=== PATIENT | male | born 1975 | race Caucasian/White ===

== ENCOUNTER 2019-04-07 15:47 | Emergency (ER) | payer OTHER ==
[2019-04-07 16:07] VITALS: BP 119/70
[2019-04-07] MEDS ORDERED: PRED20TA PO (16:31)
--- NOTE | 2019-04-07 16:31 | PHYS DOC ---
Past History Past Medical History: No Pertinent History Past Surgical History: No Surgical History Smoking: Non-smoker Alcohol Use: None Drug Use: None Adult General Chief Complaint Chief Complaint: SKIN PROBLEM HPI HPI 43-year-old male presents with report of cystic lesion to back of right wrist which patient noted today. Patient denies any pain or limitation in range of motion. Denies fever or chills. Denies redness. Patient reports he is right-hand dominant. Reports spouse persuaded him to present to the ER for evaluation. Review of Systems Review of Systems Constitutional: Denies fever or chills Musculoskeletal: Denies back pain; reports cystic lesion to right wrist Integument: Denies rash Neurologic: Denies focal weakness or sensory changes Complete systems were reviewed and found to be within normal limits, except as documented in this note. Allergies Allergies Allergies Coded Allergies Type Severity Reaction Last Updated Verified No Known Drug Allergies 04/07/19 No Physical Exam Physical Exam Constitutional: Well developed, well nourished, no acute distress, non-toxic appearance HENT: Normocephalic, atraumatic Eyes: Conjunctiva normal, no discharge Neck: Normal range of motion, no tenderness, supple Cardiovascular: Right radial pulse +2, CR < 2 sec Lungs & Thorax: No respiratory distress Skin: Warm, dry, no erythema, no rash Extremities: small 1cm cystic structures noted to dorsum of right wrist, ROM intact, no edema Neurologic: Alert and oriented X 3, no focal deficits noted Psychologic: Affect normal, judgement normal Current Patient Data Vital Signs Vital Signs Date Time Temp Pulse Resp B/P (MAP) Pulse Ox O2 Delivery O2 Flow Rate FiO2 04/07/19 16:07 71 12 119/70 (86) 96 Room Air EKG EKG [] Radiology/Procedures Radiology/Procedures [] Course & Med Decision Making Course & Med Decision Making Patient presents with history of present illness and physical exam consistent for ganglion cyst. Symptomatic treatment provided with steroid for anti- inflammatory effect. Patient advised he would likely need to follow with orthopedics for for definitive care. James wrap provided. Patient stable for discharge with outpatient follow-up with PCP/orthopedic surgery. Orthopedic surgery referral provided. Discussed findings and plan with patient, who acknowledges understanding and agreement. Dragon Disclaimer Dragon Disclaimer This electronic medical record was generated, in whole or in part, using a voice recognition dictation system. Splinting Splinting : Location: right wrist Pre-Made Type: JAMES bandage Pre-Proc Neuro Vasc Exam: normal Post-Proc Neuro Vasc Exam: normal, unchanged from pre-exam Departure Departure: Impression: Primary Impression: Ganglion cyst of dorsum of right wrist Disposition: 01 HOME, SELF-CARE Condition: STABLE Referrals: NELLY MEYER PA-C (PCP) MICHAEL BENNETT MD Patient Instructions: Ganglion Cyst Scripts Prednisone (PREDNISONE) 20 Mg Tablet 2 TAB PO DAILY for cyst, #10 TAB Prov: NGA SHAH DO 04/07/19 NGA SHAH DO Apr 07, 2019 16:31
== END 2019-04-07 16:34 | disposition home or self-care (01) ==
LOC: ER 15:47
DX: M67.431 Ganglion, right wrist (principal)
CPT/HCPCS: 99283

== ENCOUNTER 2020-04-07 09:25 | Emergency (ER) | payer OTHER ==
[~2020-04-07] VITALS: Ht 175.3 cm; Wt 84.5 kg
[~2020-04-07 09:25] MED LIST: PRED20TA PO
--- NOTE | 2020-04-07 10:05 | PHYS DOC ---
Past History Past Medical History: No Pertinent History Past Surgical History: No Surgical History Smoking: Non-smoker Alcohol Use: None Drug Use: None General Adult EDM: Chief Complaint: TESTICULAR PAIN OR INJURY HPI: HPI: 44-year-old male presents with right testicle pain. He has had discomfort for the last 3 to 4 days. The right side is mildly swollen compared to the left. He describes the pain as a dull aching of mild to moderate intensity. It is very tender to touch when he bumps it with his leg or sits down on a chair. He denies any urethral discharge. He is in a monogamous relationship. No new or unusual behaviors. He denies trauma. He denies fever or chills. Review of Systems: Review of Systems: Constitutional: Denies fever or chills Eyes: Denies change in visual acuity HENT: Denies nasal congestion or sore throat Respiratory: Denies cough or shortness of breath Cardiovascular: Denies chest pain or edema GI: Denies abdominal pain, nausea, vomiting, bloody stools or diarrhea : Testicle pain Musculoskeletal: Denies back pain or joint pain Integument: Denies rash Neurologic: Denies headache, focal weakness or sensory changes Endocrine: Denies polyuria or polydipsia Lymphatic: Denies swollen glands Psychiatric: Denies depression or anxiety Heart Score: Risk Factors: Risk Factors: DM, Current or recent (<one month) smoker, HTN, HLP, family history of CAD, obesity. Risk Scores: Score 0 - 3: 2.5% MACE over next 6 weeks - Discharge Home Score 4 - 6: 20.3% MACE over next 6 weeks - Admit for Clinical Observation Score 7 - 10: 72.7% MACE over next 6 weeks - Early Invasive Strategies Allergies: Allergies: Allergies Coded Allergies Type Severity Reaction Last Updated Verified No Known Drug Allergies 04/07/19 No Physical Exam: PE: Constitutional: Well developed, well nourished, no acute distress, non-toxic appearance. [] HENT: Normocephalic, atraumatic, bilateral external ears normal, oropharynx mois t, no oral exudates, nose normal. [] Eyes: PERRLA, EOMI, conjunctiva normal, no discharge. [] Neck: Normal range of motion, no tenderness, supple, no stridor. [] Cardiovascular: Heart rate regular rhythm, no murmur [] Lungs & Thorax: Bilateral breath sounds clear to auscultation [] Abdomen: Bowel sounds normal, soft, no tenderness, no masses, no pulsatile masses. [] Skin: Warm, dry, no erythema, no rash. [] Back: No tenderness, no CVA tenderness. [] Extremities: No tenderness, no cyanosis, no clubbing, ROM intact, no edema. [] Neurologic: Alert and oriented X 3, normal motor function, normal sensory function, no focal deficits noted. [] Psychologic: Affect normal, judgement normal, mood normal. : Normally descended testicles bilaterally, right more prominent than left; tenderness to palpation of the right. No urethral discharge. No obvious lesions [] EKG: EKG: [] Radiology/Procedures: Radiology/Procedures: [] Impressions: TESTICULAR/SCROTUM HISTORY: Right testicular pain and swelling Comparison: None. Findings: Multiple grayscale, color, and duplex spectral analysis waveform images of the testicles and scrotum are submitted. Right testicle measured 4.1 x 2.6 x 2.2 cm. Left testicle measured 4.1 x 2.9 x 2.1 cm. There is a small left epididymal head cyst up to 0.4 cm. No intratesticular mass is demonstrated on either side. There is normal low resistance vascularity of interrogated intratesticular vessels bilaterally. No asymmetric hyperemia is demonstrated. Impression: 1. Other than a small left epididymal head cyst, no abnormality is demonstrated. Electronically signed by: René Chew MD (04/07/2020 10:25 AM) [facility] DICTATED AND SIGNED BY: RENÉ CHEW MD DATE: 04/07/20 1025 CC: RAMYA JARRELL DO; NELLY MEYER PA-C ~ Course & Med Decision Making: Course & Med Decision Making Pertinent Labs and Imaging studies reviewed. (See chart for details) The patient's urinalysis is negative for infection. His testicular ultrasound shows a small epididymal cyst, but no other irregularities. It is possible that his pain is due to the cyst enlarging. I have advised that he follow-up with his primary care physician. The pain should self resolve in a few days. He is stable for discharge at this time. [] Dragon Disclaimer: Dragon Disclaimer: This electronic medical record was generated, in whole or in part, using a voice recognition dictation system. Departure Departure: Impression: Primary Impression: Epididymal cyst Disposition: 01 DC HOME SELF CARE/HOMELESS Condition: STABLE Referrals: NELLY MEYER PA-C (PCP) Patient Instructions: Epidermal Cyst RAMYA JARRELL DO Apr 07, 2020 10:04
[2020-04-07 10:27] LABS: BACTERIA,URINE 0 /HPF (0-FEW); BILIRUBIN,URINE NEG (NEG); CLARITY,URINE CLEAR; COLOR,URINE YELLOW; GLUCOSE,URINE NEG (NEG); NITRITE,URINE NEG (NEG); RBC,URINE 0 /HPF (0-2); SQUAMOUS EPITHELIAL CELL,UR OCC /LPF; UROBILINOGEN,URINE 0.2 mg/dL (0.2 mg/dL); WBC,URINE 0 /HPF (0-4)
--- NOTE | 2020-04-07 10:28 | RAD ---
TESTICULAR/SCROTUM HISTORY: Right testicular pain and swelling Comparison: None. Findings: Multiple grayscale, color, and duplex spectral analysis waveform images of the testicles and scrotum are submitted. Right testicle measured 4.1 x 2.6 x 2.2 cm. Left testicle measured 4.1 x 2.9 x 2.1 cm. There is a small left epididymal head cyst up to 0.4 cm. No intratesticular mass is demonstrated on either side. There is normal low resistance vascularity of interrogated intratesticular vessels bilaterally. No asymmetric hyperemia is demonstrated. Impression: 1. Other than a small left epididymal head cyst, no abnormality is demonstrated. Electronically signed by: Sebastian Ellis MD (04/07/2020 10:25 AM) [facility]
[2020-04-07 10:48] VITALS: BP 153/85
== END 2020-04-07 11:00 | disposition home or self-care (01) ==
LOC: ER 09:25
DX: N50.3 Cyst of epididymis (principal)
CPT/HCPCS: 76870; 81001; 99284